=== PATIENT | female | born 1945 | race Caucasian/White ===

== ENCOUNTER 2017-08-15 08:19 | Outpatient (CLI) | payer OTHER | END 2017-08-15 19:45 | disposition home or self-care (01) | LOC: SMA 08:19 | PROVIDERS: ATTEND Physician Assistant Medical | DX: N63.20 Unspecified lump in the left breast, unspecified quadrant (principal); N63.10 Unspecified lump in the right breast, unspecified quadrant | CPT/HCPCS: 77066 ==

== ENCOUNTER 2019-01-09 07:40 | Outpatient (CLI) | payer OTHER | END 2019-01-09 21:13 | disposition home or self-care (01) | LOC: SMA 07:40 | PROVIDERS: ATTEND General Practice | DX: Z12.31 Encounter for screening mammogram for malignant neoplasm of breast (principal) | CPT/HCPCS: 77067 ==

== ENCOUNTER 2021-03-13 07:59 | Outpatient (CLI) | payer OTHER | END 2021-03-13 19:10 | disposition home or self-care (01) | LOC: SMA 07:59 | PROVIDERS: ATTEND Family Medicine | DX: Z12.31 Encounter for screening mammogram for malignant neoplasm of breast (principal) | CPT/HCPCS: 77067 ==

== ENCOUNTER 2022-04-20 09:19 | Outpatient (CLI) | payer OTHER | END 2022-04-20 19:51 | disposition home or self-care (01) | LOC: SMA 09:19 | PROVIDERS: ATTEND General Practice | DX: Z12.31 Encounter for screening mammogram for malignant neoplasm of breast (principal) | CPT/HCPCS: 77067 ==